=== PATIENT | female | born 1950 ===

== ENCOUNTER 2020-01-04 12:21 | Outpatient (CLI) | payer MEDICARE, SELFPAY ==
--- NOTE | ~2020-01-04 | XR_ITS ---
XR lumbar spine min 4V DATE: 01/04/2020 12:48 INDICATION: Low back pain, left-sided sciatica TECHNIQUE: AP, lateral, coned lateral lumbosacral views, bilateral oblique views COMPARISON: None FINDINGS: There is moderate loss of interspace height at L2-3. There is mild loss of interspace heigh t at L3-4. There is grade 1 anterolisthesis and moderate loss of interspace height at L4-5. There is degenerativ e change at the apophyseal joints. No spondylolysis is evident. No fracture or bone destruction is detected. The lumbar pedicles are intact. The sacroiliac joints are normal. IMPRESSION: Degenerative change at the apophyseal joints with associated grade 1 anterolisthesis at L 4-5 Moderate degenerative disc disease of the mid lumbar spine Reviewed, dictated and finalized at location A. IMPRESSION: Degenerative change at the apophyseal joints with associated grade 1 anterolisthesis at L4-5 Moderate degenerative disc disease of the mid lumbar spine
== END 2020-01-04 12:22 | disposition home or self-care (01) ==
PROVIDERS: PCP Family Medicine; Visit Provider Family Medicine
DX: M51.36 Other intervertebral disc degeneration, lumbar region (principal)
CPT/HCPCS: 72110

== ENCOUNTER 2020-01-15 08:48 | Outpatient (CLI) | payer MEDICARE, SELFPAY ==
--- NOTE | ~2020-01-15 | MR_ITS ---
EXAMINATION: MR lumbar spine wo con DATE: 01/15/2020 10:01 INDICATION: Lumbago with left-sided sciatica. TECHNIQUE: Magnetic resonance imaging (MRI) of the lumbar spine was performed without intravenous con trast. Sequences included sagittal T2-weighted FSE, sagittal T2-weighted FS FSE, sagittal T1-weighted FSE, and axial T2-weighted FSE. COMPARISON: Lumbar spine radiographs 01/04/2020 FINDINGS: There is 7 degrees levocurvature of lumbar spine. There is 6 mm anterolisthesis of L4 on L5 . Vertebral body heights are normal. There is mildly decreased disc height at L1-L2, moderately decre ased disc height at L2-L3, and mildly decreased disc height at L3-L4 and L4-L5. The distal spinal cor d signal intensity is normal. The conus medullaris is at L1-L2. The following disc levels are specifi perfecto discussed: L1-L2: The disc is bulging. There is mild right facet joint osteoarthritis. There is mild bilateral n eural foraminal stenosis. There is mild central canal stenosis. L2-L3: The disc is bulging with superimposed right subarticular zone extrusion with mass effect on ri ght L3 nerve root. There is moderate bilateral facet joint osteoarthritis. There is moderate bilatera l neural foraminal stenosis. There is mild central canal stenosis. L3-L4: The disc is bulging with superimposed right central extrusion. There is mild bilateral facet j oint osteoarthritis. There is mild bilateral neural foraminal stenosis. There is mild central canal s tenosis. L4-L5: The disc is bulging and has an annular fissure. There is severe bilateral facet joint osteoart hritis. There is moderate right and mild left neural foraminal stenosis. There is moderate central ca nal stenosis. L5-S1: The disc does not extend beyond the endplate margin. There is moderate bilateral facet joint o steoarthritis. There is mild bilateral neural foraminal stenosis. There is no central canal stenosis. IMPRESSION: 1. Moderate lumbar spondylosis. Reviewed, dictated and finalized at location A.
== END 2020-01-15 08:49 | disposition home or self-care (01) ==
PROVIDERS: PCP Family Medicine; Visit Provider Family Medicine
DX: G89.29 Other chronic pain (principal); M54.41 Lumbago with sciatica, right side; M54.42 Lumbago with sciatica, left side; M47.896 Other spondylosis, lumbar region
CPT/HCPCS: 72148

== ENCOUNTER 2020-06-02 14:25 | Outpatient (CLI) | payer MEDICARE, SELFPAY ==
--- NOTE | ~2020-06-02 | MM_ITS ---
EXAMINATION: MM screening paola BI w jt HISTORY: Screening TECHNIQUE: Craniocaudal and mediolateral oblique 3-D tomosynthesis images were obtained and synthetic 2-D images were generated. CAD analysis was submitted and interpreted. COMPARISON: Comparison to multiple prior studies sequentially, with oldest reviewed study dated 03/23. BREAST PARENCHYMAL COMPOSITION: There are scattered areas of fibroglandular density. FINDINGS: There is no evidence of suspicious mass, calcification, or architectural distortion to sugg est malignancy in either breast. There has been no suspicious interval change. IMPRESSION: 1. No mammographic evidence of malignancy. 2. Recommend routine screening mammography in one year. BI-RADS Category 1: Negative Reviewed, dictated and finalized at location A. SANDER
== END 2020-06-02 14:26 | disposition home or self-care (01) ==
LOC: ANHIMG 14:27
PROVIDERS: PCP Family Medicine; Visit Provider Family Medicine
DX: Z12.31 Encounter for screening mammogram for malignant neoplasm of breast (principal)
CPT/HCPCS: 77063; 77067

== ENCOUNTER 2021-06-05 14:32 | Outpatient (CLI) | payer MEDICARE, SELFPAY ==
--- NOTE | ~2021-06-05 | MM_ITS ---
EXAMINATION: MM screening paola BI w jt HISTORY: Screening mammogram, family history of breast cancer in her sister. TECHNIQUE: Craniocaudal and mediolateral oblique 3-D tomosynthesis images were obtained and synthetic 2-D images were generated. CAD analysis was submitted and interpreted. COMPARISON: 06/02/2020, 05/17/2019, 05/13/2018 BREAST PARENCHYMAL COMPOSITION: There are scattered areas of fibroglandular density. FINDINGS: There is no evidence of suspicious mass, calcification, or architectural distortion to sugg est malignancy in either breast. There has been no suspicious interval change. IMPRESSION: 1. No mammographic evidence of malignancy. 2. Recommend routine screening mammography in one year. BI-RADS Category 1: Negative Reviewed, dictated and finalized at location A. [employer]ATE [employer]
== END 2021-06-05 14:33 | disposition home or self-care (01) ==
LOC: ANHIMG 14:34
PROVIDERS: PCP Family Medicine; Visit Provider Family Medicine
DX: Z12.31 Encounter for screening mammogram for malignant neoplasm of breast (principal)
CPT/HCPCS: 77063; 77067

== ENCOUNTER 2021-10-04 00:54 | Emergency (ER) | payer MEDICARE, SELFPAY ==
--- NOTE | ~2021-10-04 | XR_ITS ---
EXAMINATION: XR knee RT 3V DATE: 10/04/2021 01:58 INDICATION: Right knee pain TECHNIQUE: Three views of the right knee were obtained. COMPARISON: None. FINDINGS: Alignment is normal. No fracture or osteochondral lesion. There is mild tricompartmental os teoarthritis characterized by tiny marginal osteophytes. There is a large knee joint effusion with po ssible calcified loose bodies. Soft tissues are unremarkable. IMPRESSION: 1. Large knee joint effusion without acute osseous abnormality. Reviewed, dictated and finalized at location A.
[2021-10-04 00:59] VITALS: BP 167/98; PULSE 76; RESP 16; TEMP 36.6; O2SAT 100
--- NOTE | 2021-10-04 01:12 | ED.LOWEXIN ---
HPI - Extremity Injury (Lower) General Chief Complaint: Extremity Injury, Lower Stated Complaint: KNEE PAIN Time Seen by Provider: 10/04/21 01:12 Source: patient Mode of arrival: EMS Limitations: no limitations History of Present Illness HPI Narrative: Patient is a 71-year-old female who presents the ED via EMS with report of right knee pain. Related Data Home Medications Medication Instructions Recorded Confirmed gabapentin 600 mg tablet 600 mg PO TID 01/02/21 06/05/21 Allergies Allergy/AdvReac Type Severity Reaction Status Date / Time No Known Allergies Allergy Unverified 01/01/18 14:45 Review of Systems Review of Systems: CONSTITUTIONAL: Denies fever, chills, or sweats. EYES: Denies visual changes, redness, or discharge. ENT: Denies rhinorrhea, congestion, sore throat, or otalgia. CARDIOVASCULAR: Denies chest pain, palpitations, or edema. RESPIRATORY: Denies cough or dyspnea. GASTROINTESTINAL: Denies abdominal pain, nausea, vomiting, or diarrhea. GENITOURINARY: Denies dysuria or hematuria. SKIN: Denies rash or itching. MUSCULOSKELETAL: Denies back pain, joint pain, or myalgia. NEUROLOGIC: Denies headache, numbness, or weakness. PSYCHIATRIC: Denies anxiety or depression. All systems reviewed & are unremarkable except as noted in HPI and below PMFSH Past Medical History Medical History Bilateral knee pain BMI 30.0-30.9,adult BMI 31.0-31.9,adult Breast cancer screening by mammogram Normal mammogram 06/05/2021 Oral aphthous ulcer Osteopenia after menopause Surgical History Surgical History History of back surgery Lumbar decompression May 2020 Family History Family History Father Patient's father is , Onset Age: 67 Grandparent Family history of liver disease, Onset Age: 50 Mother Family history of lung cancer Social History Social History Smoking status: Never smoker Alcohol intake: current Substance use: never Substance use type: does not use Exam Narrative: GENERAL: Well appearing, well-nourished, non-toxic, in no acute distress. HEAD: Normocephalic, atraumatic. EYES: PERRL/EOMI, conjunctivae clear bilaterally. NOSE: Normal, no drainage EARS:TMS clear, with good light reflex. No erythema or bulging. THROAT: Pharynx clear, no exudate. MMs moist. NECK: Supple. No adenopathy, no masses. RESPIRATORY: Airway patent, respirations nonlabored. Clear to auscultation bilaterally, no rales, rhonchi, wheezing. CARDIOVASCULAR: Regular rate and rhythm without murmurs, rubs, or gallops. Peripheral pulses 2+ and equal bilaterally. ABDOMINAL: Soft, nontender, nondistended, no hepatosplenomegaly. Normoactive BS. MUSCULOSKELETAL: Moves all extremities. Strength/ROM intact without gross deformities or TTP. No edema. No calf tenderness. SKIN: Warm, dry, normal color. No rashes. NEURO: A&O X3. Speech clear. Cranial nerves II-XII grossly intact. Steady gait. No ataxic movements. PSYCHIATRIC: Appropriate mood and affect. Normal interaction. Course Vital Signs Vital signs: Vital Signs Temperature 97.8 F 10/04/21 00:59 Pulse Rate 76 10/04/21 00:59 Respiratory Rate 16 10/04/21 00:59 Blood Pressure 167/98 H 10/04/21 00:59 Pulse Oximetry 100 10/04/21 00:59 Temperature 97.8 F 10/04/21 00:59 Pulse Rate 76 10/04/21 00:59 Respiratory Rate 16 10/04/21 00:59 Blood Pressure 167/98 H 10/04/21 00:59 Pulse Oximetry 100 10/04/21 00:59 Discharge Plan Discharge Prescriptions: No Action triamcinolone acetonide 0.1 % paste 1 applic DENTAL BID-TID PRN (Reason: mouth irritation) Qty: 5 RF: 11 gabapentin 600 mg tablet 600 mg PO TID RF: 0 citalopram 20 mg tablet 20 mg PO DAILY Qty: 90 RF: 3 tramadol
--- NOTE | 2021-10-04 01:22 | ED.LOWEXIN ---
HPI - Extremity Injury (Lower) General Chief Complaint: Extremity Injury, Lower Stated Complaint: KNEE PAIN Time Seen by Provider: 10/04/21 01:12 Source: patient Mode of arrival: EMS Limitations: no limitations History of Present Illness HPI Narrative: 71-year-old female presents emergency room secondary pain to her right knee. He was try to get her dog into the house when she tried to go one way and the dog pulled her the other way. She [place] ramirez mix and about 80 pound dog. In the process she twisted her right knee. She had pain to her right knee ever since this happened with just this evening. She put some ice on it but he continued to have throbbing pain to the point she can bear weight on it and walk around. She had orthoscopic surgery to her knees before. She has had injections of her knees of steroids in the past. She did not actually fall on her knee. She denies any blood thinners. Related Data Home Medications Medication Instructions Recorded Confirmed gabapentin 600 mg tablet 600 mg PO TID 01/02/21 06/05/21 Allergies Allergy/AdvReac Type Severity Reaction Status Date / Time No Known Allergies Allergy Unverified 01/01/18 14:45 Review of Systems Review of Systems: CONSTITUTIONAL: Denies fever, chills, or sweats. EYES: Denies visual changes, redness, or discharge. ENT: Denies rhinorrhea, congestion, sore throat, or otalgia. CARDIOVASCULAR: Denies chest pain, palpitations, or edema. RESPIRATORY: Denies cough or dyspnea. GASTROINTESTINAL: Denies abdominal pain, nausea, vomiting, or diarrhea. GENITOURINARY: Denies dysuria or hematuria. SKIN: Denies rash or itching. MUSCULOSKELETAL: Pain to the right knee is no in the HPI NEUROLOGIC: Denies headache, numbness, or weakness. PSYCHIATRIC: Denies anxiety or depression. [facility] Past Medical History Medical History Bilateral knee pain BMI 30.0-30.9,adult BMI 31.0-31.9,adult Breast cancer screening by mammogram Normal mammogram 06/05/2021 Oral aphthous ulcer Osteopenia after menopause Surgical History Surgical History History of back surgery Lumbar decompression May 2020 Family History Family History Father Patient's father is , Onset Age: 67 Grandparent Family history of liver disease, Onset Age: 50 Mother Family history of lung cancer Social History Social History Smoking status: Never smoker Alcohol intake: current Substance use: never Substance use type: does not use Exam Narrative: APPEARANCE: Well appearing, no pain or distress, well-nourished. Head normocephalic and atraumatic. EYES: PERRLA/EOMI, conjunctivae very clear. NOSE: Normal with no drainage EARS:TMS clear Patricia Goodwin, with good light reflex. THROAT: Pharynx clear, no exudate. NECK: Supple. No adenopathy, no masses. RESPIRATORY: Airway patent, respirations nonlabored. Clear to auscultation bilaterally, no rales, rhonchi, wheezing. CARDIOVASCULAR: Regular rate and rhythm without murmurs, rubs, or gallops. ABDOMINAL: Soft, nontender, nondistended, no hepatosplenomegaly Musculoskeletal: Noted and an effusion to the right knee. The patella is noted to be ballotable. There is tenderness with palpation but no obvious bony abnormalities. Normal alignment. No tenderness at the ankle of the hip. NEURO: Alert. Cranial nerves II through XII intact. Normal gait. Good coordination. Nonfocal examination. SKIN:: Warm, dry. Normal Color PSYCHIATRIC: Normal affect/mood, normal interaction Course Vital Signs Vital signs: Vital Signs Temperature 97.8 F 10/04/21 00:59 Pulse Rate 76 10/04/21 00:59 Respiratory Rate 16 10/04/21 00:59 Blood Pressure 167/98 H 10/04/21 00:59 Pulse Oximetry 100 04 00:59
[2021-10-04 03:15] VITALS: BP 140/80; PULSE 72; RESP 16; O2SAT 98
== END 2021-10-04 03:20 | disposition home or self-care (01) ==
PROVIDERS: Emergency Provider Emergency Medicine; PCP Family Medicine
DX: M23.91 Unspecified internal derangement of right knee (principal); S89.91XA Unspecified injury of right lower leg, initial encounter; X50.9XXA Other and unspecified overexertion or strenuous movements or postures, initial encounter; M85.80 Other specified disorders of bone density and structure, unspecified site
CPT/HCPCS: 20610; 73562; 99283